=== PATIENT | male | born 1990 | race African-American/Black ===

== ENCOUNTER 2017-03-01 11:05 | Emergency (ER) | payer OTHER ==
[~2017-03-01] VITALS: Ht 182.9 cm; Wt 97.5 kg
[~2017-03-01 11:05] MED LIST: IBUPROFEN 800800 MG PO; NORCO 5-325 TA1 EACH PO; PREDNISONE50 MG PO; PROTONIX40 MG PO; VENTOLIN HFA 1818 GM INH; ZOFRAN ODT4 MG PO; ZOFRAN4 MG PO; ZPAK PO
[2017-03-01 11:12] VITALS: BP 116/68
[2017-03-01] MEDS ORDERED: PROMETHAZINE D480 ML GT (12:02)
[2017-03-01] MEDS ORDERED: ACCUNEB SO1.25 MG/1 INH (12:02)
[2017-03-01] MEDS ORDERED: DELTASONE20 MG PO (12:02)
== END 2017-03-01 12:17 | disposition home or self-care (01) ==
LOC: ER 11:05
DX: J20.8 Acute bronchitis due to other specified organisms (principal); F17.200 Nicotine dependence, unspecified, uncomplicated; Z71.6 Tobacco abuse counseling

== ENCOUNTER 2019-08-23 17:54 | Emergency (ER) | payer OTHER ==
[~2019-08-23] VITALS: Ht 182.9 cm; Wt 99.8 kg
[~2019-08-23 17:54] MED LIST changes: +ACCUNEB SO1.25 MG/1 INH; +DELTASONE20 MG PO; +PROMETHAZINE D480 ML GT
[2019-08-23] MEDS ORDERED: NORFLEX100 MG PO (20:04)
[2019-08-23] MEDS ORDERED: MOBIC7.5 MG PO (20:04)
[2019-08-23 20:52] VITALS: BP 134/98
== END 2019-08-23 20:52 | disposition home or self-care (01) ==
LOC: ER 17:54
DX: S16.1XXA Strain of muscle, fascia and tendon at neck level, initial encounter (principal); S39.012A Strain of muscle, fascia and tendon of lower back, initial encounter; V89.2XXA Person injured in unspecified motor-vehicle accident, traffic, initial encounter; Y93.I9 Activity, other involving external motion; Y92.89 Other specified places as the place of occurrence of the external cause; Y99.8 Other external cause status

== ENCOUNTER 2020-08-04 12:03 | Emergency (ER) | payer OTHER ==
[~2020-08-04] VITALS: Ht 182.9 cm; Wt 97.5 kg
[~2020-08-04 12:03] MED LIST changes: +MOBIC7.5 MG PO; +NORFLEX100 MG PO
[2020-08-04] MEDS ORDERED: TESSALON PERLE100 MG PO (13:03)
[2020-08-04 13:15] VITALS: BP 122/74
== END 2020-08-04 13:44 | disposition home or self-care (01) ==
LOC: ER 12:03
DX: B34.9 Viral infection, unspecified (principal); Z20.828 Contact with and (suspected) exposure to other viral communicable diseases

== ENCOUNTER 2020-10-05 14:59 | Emergency (ER) | payer OTHER ==
[~2020-10-05] VITALS: Ht 182.9 cm; Wt 93.0 kg
[~2020-10-05 14:59] MED LIST changes: +TESSALON PERLE100 MG PO
[2020-10-05] MEDS ORDERED: PROMETH-CODEIN 65 ML PO (17:11)
[2020-10-05] MEDS ORDERED: AFRIN15 M1 NASAL (17:14)
[2020-10-05 17:38] VITALS: BP 137/86
--- NOTE | 2020-10-06 07:06 | EKG ---
[facility] [place] [address] ELECTROCARDIOGRAM REPORT Name: CEM DELGADO Room #: [facility]#: [id number] Admission: 10/05/20 Attend Phys: Discharge: 10/05/20 Date of : 89 Report #: [id number] THIS REPORT FOR: cc: OSEI Holman family physician/PCP OSEI Holman family physician/PCP Panfilo Ga MD [facility] ~ THIS REPORT FOR: //name// [facility] ED Test Date: 2020-10-05 Test Time: 15:04:12 Pat Name: CEM DELGADO Department: Room: Gender: [employer] Draw[employer] Hand: am : 1990 Requested By: Mikayla [place] Order Number: [id number] MD: Panfilo Ga Measurements Intervals [place] Rate: 107 P: 51 MD: 157 QRS: 12 QRSD: 92 T: 26 QT: 319 QTc: 426 Interpretive Statements Sinus tachycardia ST elev, probable normal early repol pattern No previous ECG available for comparison Electronically Signed On 10-06-2020 7:06:25 STAFF INTERNIST OFFICE BASED ONLY by Panfilo Ga [email or web address] <ELECTRONICALLY SIGNED> By: Panfilo Ga MD, FACC 10/06/20 [id number] Panfilo Ga MD, [facility] /EPI
== END 2020-10-05 17:44 | disposition home or self-care (01) ==
LOC: ER 14:59
DX: R05 Cough (principal); R09.81 Nasal congestion; Z79.899 Other long term (current) drug therapy; Z20.828 Contact with and (suspected) exposure to other viral communicable diseases

== ENCOUNTER 2021-02-13 13:53 | Emergency (ER) | payer OTHER ==
[~2021-02-13] VITALS: Ht 182.9 cm; Wt 95.3 kg
[~2021-02-13 13:53] MED LIST changes: +AFRIN15 M1 NASAL; +PROMETH-CODEIN 65 ML PO
[2021-02-13 16:38] LABS: ABSOLUTE NEUTROPHILS 4.3 thou/uL (1.4-8.2); BASOPHILS 0.2 % (0.0-2.0); EOSINOPHILS 1.1 % (0.0-3.0); HEMATOCRIT 46.1 % (42.0-52.0); HEMOGLOBIN 15.7 gm/dL (14.0-18.0); LYMPHOCYTES 33.2 % (24.0-44.0); MCHC 34.2 g/dL (28.0-37.0); MCV 87.8 fL (80.0-100.0); MONOCYTES 8.7 % (1.0-8.0); PLATELET COUNT 268 thou/uL (150-400); POLYS 56.8 % (36.0-66.0); RBC 5.24 mil/uL (4.50-6.00); RDW 13.6 % (10.5-14.5); WBC 7.5 thou/uL (4.0-11.0)
[2021-02-13 16:49] LABS: CALCIUM 9.3 mg/dL (8.5-10.1); POTASSIUM 4.1 mmol/L (3.5-5.1)
[2021-02-13] MEDS ORDERED: CYCLOBENZAPRINE5 MG PO (17:48)
[2021-02-13] MEDS ORDERED: NORCO5 PO (17:48)
[2021-02-13 18:50] VITALS: BP 145/52
== END 2021-02-13 18:55 | disposition home or self-care (01) ==
LOC: ER 13:53
PROVIDERS: Emergency Medicine
DX: M54.6 Pain in thoracic spine (principal); M54.5 Low back pain; R11.2 Nausea with vomiting, unspecified; F17.210 Nicotine dependence, cigarettes, uncomplicated; Z79.899 Other long term (current) drug therapy

== ENCOUNTER 2021-03-27 08:24 | Emergency (ER) | payer OTHER ==
[~2021-03-27] VITALS: Ht 182.9 cm; Wt 98.4 kg
[~2021-03-27 08:24] MED LIST changes: +CYCLOBENZAPRINE5 MG PO; +NORCO5 PO
[2021-03-27 08:25] VITALS: BP 133/86
== END 2021-03-27 09:21 | disposition home or self-care (01) ==
LOC: ER 08:24
DX: J32.9 Chronic sinusitis, unspecified (principal); F17.210 Nicotine dependence, cigarettes, uncomplicated; Z79.899 Other long term (current) drug therapy

== ENCOUNTER 2021-05-30 10:11 | Emergency (ER) | payer OTHER ==
[~2021-05-30] VITALS: Ht 182.9 cm; Wt 114.8 kg
[2021-05-30 11:19] VITALS: BP 136/76
[2021-05-30] MEDS ORDERED: PROMETH-CODEIN 65 ML PO (13:09)
[2021-05-30] MEDS ORDERED: PREDNISONE 20 M20 M1 PO (13:09)
[2021-05-30] MEDS ORDERED: PROAIR HFA8.5 GM INH (13:09)
== END 2021-05-30 13:15 | disposition home or self-care (01) ==
LOC: ER 10:11
DX: B34.9 Viral infection, unspecified (principal); R09.81 Nasal congestion; R05 Cough; F17.210 Nicotine dependence, cigarettes, uncomplicated; Z20.822 Contact with and (suspected) exposure to COVID-19